=== PATIENT | female | born 1970 | race African-American/Black ===

== ENCOUNTER 2019-08-11 13:50 | Emergency (ER) | payer OTHER ==
[~2019-08-11] VITALS: Ht 165.1 cm; Wt 77.6 kg
--- NOTE | ~2019-08-11 | EMS ---
[address] [address] EMS Patient Care Report Name: JOB REBOLLAR Room #: DEP [facility]I [facility]#: [id number] Admission: 08/11/19 Attend Phys: Discharge: 08/11/19 Date of : 74 Report #: [id number] THIS REPORT FOR: //name// Report Transmitted: 08/13/2019 17:10 EMS Care Summary [place], [place]/[facility] Incident [id number] @ 08/11/2019 13:08 Incident Location [id number] [place] [address] [address] Patient CARLENE CINTRON Female, 49 Years 1970 Patient Address [address] [place], [place] [id number] Patient History Diabetes,Hypertension,Supraventricular Tachycardia (SVT), Patient Allergies Penicillin allergy,Diphenhydramine, Patient Medications Insulin, Lisinopril, Norvasc, Chief Complaint Short of breath, dizziness, lightheadedness Disposition Transported [facility] Reason Breathing Problem Transported To [facility] Narrative Arrived on scene of a 49 y/o female that is sitting in a chair in the hallway of the retirement. 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 Pt said that she did eat lunch and took her insulin but had no other medications [address] [address] EMS Patient Care Report Name: NATALIE HARPERJOB Room #: DEP [facility].#: [id number] Admission: 08/11/19 Attend Phys: Discharge: 08/11/19 Date of : 74 Report #: [id number] today. Pt said that she has had SVT before about 4-5 years ago. Pt said that gave her medications to slow down her heart and she really hated how it felt and did not want to have it. Explained to the Pt that I could either do the medication or I will have to shock her heart with electricity. Pt did not want either or and explained to her that her heart is beating too fast and it can be deadly for her. She said to go with the medication. Gave the Pt the Adenosine and it did convert her to a slower rate. Pt said that after the medication took affect and slowed her heart rate, she said that the dizziness, shortness of breath, lightheadedness, and the nausea went away. Pt said that the nausea and dizziness was there a little but nothing like it was. See Pt Assessment SVT See FLow Chart. Moved Pt from the chair to the cot. While moving the Pt to the ambulance via cot, Pt became incontinent. Transported emergent to the closest hospital. Moved Pt from cot to bed via cot sheet. Transferred care to receiving facility. Initial Vitals @13:28P: 182, @13:22P: 191,R: 26,BP: 68/57,Pain: 0/10,SpO2: 86,TN Suspected: false @13:41P: 118,R: 18,BP: 140/111,Pain: 0/10,GCS: 15,Revised Trauma: 12, @13:33P: 148,R: 20,Pain: 0/10,GCS: 15,TN Suspected: false Assessments @13:18MENTAL:Person Oriented,Time Oriented,Place Oriented,Event Oriented,SKIN:Cold,Diaphoresis,Pale,HEENT:Head/Face: No Abnormalities,Eyes: No Abnormalities,Neck/Airway: No Abnormalities,LUNG SOUNDS:General: No Abnormalities,Left Upper: No Abnormalities,Right Upper: No Abnormalities,ABDOMEN:General: No Abnormalities,Left Upper: No Abnormalities,Right Upper: No Abnormalities,PELVIS//GI:Incontinence,EXTREMITIES:Left Arm: No Abnormalities,Right Arm: No Abnormalities,Left Leg: No Abnormalities,Right Leg: No Abnormalities,PULSE:Radial: Absent,NEURO:Other,@13:40MENTAL:Person Oriented,Event Oriented,Time Oriented,Place Oriented,SKIN:HEENT:Head/Face: No Abnormalities,Eyes: No Abnormalities,Neck/Airway: No Abnormalities,LUNG SOUNDS:General: Nausea,Left Upper: No Abnormalities,Right Upper: No Abnormalities,Left Lower: No Abnormalities,Right Lower: No Abnormalities,ABDOMEN:General: Nausea,Left Upper: No Abnormalities,Right Upper: No Abnormalities,Left Lower: No Abnormalities,Right Lower: No Abnormalities,PELVIS//GI:No Abnormalities,EXTREMITIES:Left Arm: No Abnormalities,Right Arm: No Abnormalities,Left Leg: No Abnormalities,Right Leg: No Abnormalities,PULSE:Radial: 2+ Normal,NEURO:No Abnormalities, [address] [address] EMS Patient Care Report Name: JOB REBOLLAR Room #: DEP EDI [facility]#: [id number] Admission: 08/11/19 Attend Phys: Discharge: 08/11/19 Date of : 74 Report #: [id number] Impression Cardiac arrhythmia/dysrhythmia Procedures @13:18ALS AssessmentResponse: UnchangedSucceeded@13:203-Lead ECGResponse: UnchangedSucceeded@13:30Saline Lock 5cc (18 ga) Site: Antecubital-LeftResponse: UnchangedSucceeded@13:33Normal Saline (.9% NaCl) 500cc () Site: Antecubital-LeftResponse: ImprovedSucceeded@PTAOxygen FlowRate: 15 Device: Non Re-breather Mask (NRB) Response: UnchangedSucceeded@13:32Adenosine - 12 Milligrams (mg) - Intravenous (IV)Response: Improved@13:2812-Lead ECGResponse: UnchangedSucceeded 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,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: 15 Device: Non Re-breather Mask (NRB) Response: UnchangedSucceeded, 13:07,Call Received 13:07,Dispatch Notified 13:08,Dispatched 13:09,En Route 13:15,On Scene 13:18,At Patient 13:18,ALS Assessment,Response: UnchangedSucceeded, 13:20,3-Lead ECG,Response: UnchangedSucceeded, 13:22,BP: 68/57 M,PULSE: 191,RR: 26 R,SPO2: 86 Ox,ETCO2: ,BG: ,PAIN: 0,GCS: , 13:28,12-Lead ECG,Response: UnchangedSucceeded, 13:28,BP: / M,PULSE: 182,RR: R,SPO2: Ox,ETCO2: ,BG: ,PAIN: ,GCS: , 13:30,Saline Lock 5cc 18 ga Site: Antecubital-Left,Response: UnchangedSucceeded, 13:32,Adenosine - 12 Milligrams (mg) - Intravenous (IV),Response: Improved 13:33,BP: / M,PULSE: 148,RR: 20 R,SPO2: Ox,ETCO2: ,BG: ,PAIN: 0,GCS: 15, 13:33,Normal Saline (.9% NaCl) 500cc Site: Antecubital-Left,Response: ImprovedSucceeded, 13:37,Depart Scene 13:41,BP: 140/111 M,PULSE: 118,RR: 18 R,SPO2: Ox,ETCO2: ,BG: ,PAIN: 0,GCS: 15, 13:42,At Destination 14:06,Call Closed Disclaimer v1.1 Copyright 2019 [employer] This EMS Care Summary contains data elements from the applicable legal record (which may be displayed differently). It is designed to provide pertinent information for the following purposes: continuity of care, clinical quality, and state data reporting. The complete legal record is available to ED staff and administrators of the receiving hospital in [facility]'s Patient Tracker. All data is provided "as is."
[~2019-08-11 13:50] MED LIST: LOPRESSOR 12.12.5 MG PO; LOPRESSOR25; ZESTORETIC 20-1 EAC3 PO
[2019-08-11 14:09] LABS: ABSOLUTE NEUTROPHILS 3.1 thou/uL (1.4-8.2); BASOPHILS 0.8 % (0.0-2.0); HEMATOCRIT 41.7 % (37.0-47.0); HEMOGLOBIN 13.6 gm/dL (12.0-15.0); LYMPHOCYTES 54.7 % (24.0-44.0); MCH 27.3 pg (26.0-34.0); MCHC 32.5 g/dL (28.0-37.0); MCV 84.1 fL (80.0-100.0); MONOCYTES 5.5 % (1.0-8.0); RBC 4.97 mil/uL (4.20-5.00); RDW 12.8 % (10.5-14.5)
[2019-08-11 14:18] LABS: ANION GAP 15 mmol/L (7-16); BUN 15 mg/dL (7-18); CALCIUM 9.4 mg/dL (8.5-10.1); CHLORIDE 103 mmol/L (98-107); CO2 21 mmol/L (21-32); GLUCOSE 363 mg/dL (74-106); SODIUM 139 mmol/L (136-145)
[2019-08-11 14:19] LABS: POTASSIUM 4.2 mmol/L (3.5-5.1)
[2019-08-11 14:23] LABS: AMP/METHAMP Negative (Negative); BARBITURATES Negative (Negative); BENZODIAZEPINES Negative (Negative); COCAINE Negative (Negative); METHADONE Negative (Negative); OPIATES Negative (Negative); PCP Negative (Negative)
[2019-08-11 14:27] LABS: ALBUMIN 3.9 g/dL (3.4-5.0); MAGNESIUM 1.8 mg/dL (1.8-2.4); SGOT 22 U/L (15-37); SGPT 19 U/L (30-65); TOTAL BILIRUBIN 0.3 mg/dL (<0.1-1.0); TROPONIN-I <0.06 ng/mL (<0.06)
[2019-08-11 14:33] LABS: PLATELET COUNT 272 thou/uL (150-400)
[2019-08-11 14:48] LABS: APTT 27.6 Seconds (24.5-32.8); PROTIME 10.3 Seconds (9.3-11.4)
[2019-08-11] MEDS ORDERED: TOPROL XL50 MG PO (15:18)
[2019-08-11 15:56] VITALS: BP 176/111
--- NOTE | 2019-08-12 12:51 | EKG ---
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
== END 2019-08-11 15:42 | disposition home or self-care (01) ==
LOC: ER 13:50
PROVIDERS: Emergency Medicine
DX: I47.1 Supraventricular tachycardia (principal); I10 Essential (primary) hypertension; E11.9 Type 2 diabetes mellitus without complications; Z88.0 Allergy status to penicillin